=== PATIENT | female | born 1975 | race African-American/Black ===

== ENCOUNTER 2018-01-02 09:48 | Emergency (ER) | payer OTHER ==
[~2018-01-02] VITALS: Ht 162.6 cm; Wt 116.4 kg
[~2018-01-02 09:48] MED LIST: Motrin PO; Percocet 5/325,Endoc PO; Senokot S,Pericolace PO; TORADOL10 MG PO; ULTRAM50 MG PO; VALTREX1000 MG PO
[2018-01-02] MEDS ORDERED: ROXICODONE5 MG PO (12:10)
[2018-01-02 12:19] VITALS: BP 100/72
== END 2018-01-02 12:19 | disposition home or self-care (01) ==
LOC: EME 09:48
DX: M79.661 Pain in right lower leg (principal); J45.909 Unspecified asthma, uncomplicated; F17.200 Nicotine dependence, unspecified, uncomplicated; Z90.710 Acquired absence of both cervix and uterus; Z90.49 Acquired absence of other specified parts of digestive tract
CPT/HCPCS: 73590; 93971; 99281; 99284